=== PATIENT | male | born 2000 | race Caucasian/White ===

== ENCOUNTER 2020-05-03 20:55 | Emergency (ER) | payer BC ==
[~2020-05-03] VITALS: Ht 183 cm; Wt 74.8 kg
--- NOTE | 2020-05-03 21:19 | ED Abdominal Pain ---
General Stated Complaint: SORE THROAT/COUGH/HAS HAD BOTH COVID VACC Source of Information: Patient Exam Limitations: No Limitations History of Present Illness Date Seen by Provider: May 03, 2020 Time Seen by Provider: 21:01 Initial Comments This is a well appearing 19 yo male who presents to the ED with c/o sore throat and cough. States he has had both of his COVID vaccines. Reports cough is irritating and bothersome and wants to know if there is anything he can have to help with this. States he took Delsym, Ibuprofen, and Mucinex early this morning which did help his symptoms significantly. He has not taken anything since. Denies fever, chills, shortness of breath, nausea, vomiting, diarrhea, or abdominal pain. States he has slight chest discomfort from coughing so frequently. Allergies and Home Medications Allergies Coded Allergies: No Known Drug Allergies (Unverified , 05/03/20) Home Medications Albuterol Sulfate 1 Puff Puff, 2 PUFF INH Q4H PRN for WHEEZING 1 PUFF = 90 MCG Prescribed by: BECKY PSATOR on 05/03/202230 Benzonatate 100 Mg Capsule, 100 MG PO Q8H PRN for COUGH Prescribed by: BECKY PASTOR on 05/03/202230 Patient Home Medication List Home Medication List Reviewed: Yes Review of Systems Review of Systems Constitutional: no symptoms reported EENTM: See HPI; No Ear Pain; Nose Congestion, Throat Pain; No Throat Swelling Respiratory: Cough; Denies Shortness of Air, Denies Wheezing Cardiovascular: No Symptoms Reported Gastrointestinal: No Symptoms Reported Genitourinary: No Symptoms Reported Musculoskeletal: no symptoms reported Skin: no symptoms reported Psychiatric/Neurological: No Symptoms Reported Endocrine: No Symptoms Reported Hematologic/Lymphatic: No Symptoms Reported Physical Exam Vital Signs Vital Signs - First Documented 05/03/20 21:15 Temp 37.0 Pulse 81 Resp 18 B/P (MAP) 137/87 (104) Pulse Ox 100 O2 Delivery Room Air Capillary Refill : Height/Weight/BMI Height: '" Weight: lbs. oz. kg; BMI Method: General Appearance: WD/WN, no apparent distress HEENT: PERRL/EOMI, normal ENT inspection, pharynx normal Neck: non-tender, full range of motion, supple Respiratory: lungs clear, normal breath sounds, no respiratory distress; No accessory muscle use, No wheezing Cardiovascular: regular rate, rhythm, no murmur Gastrointestinal: normal bowel sounds, non tender, soft Extremities: normal range of motion, non-tender, normal inspection, normal capillary refill Neurologic/Psychiatric: no motor/sensory deficits, alert, normal mood/affect, oriented x 3 Skin: normal color, warm/dry; No rash Progress/Results/Core Measures Results/Orders Lab Results Laboratory Tests Test 05/03/20 21:19 Range/Units Group A Streptococcus Screen NEGATIVE NEGATIVE Micro Results Microbiology 05/03/20 Throat Culture - Preliminary, Resulted No Beta Strep isolated 05/03/20 Influenza Types A,B Antigen ([facility]) - Final, Complete My Orders Orders - BECKY PASTOR APRN Rapid Strep A Screen (05/03/20 21:01) Influenza A And B Antigens (05/03/20 21:01) Benzonatate Capsule (Tessalon Perles) (05/03/20 22:45) Vital Signs/I&O 05/03/20 05/03/20 21:15 22:35 Temp 37.0 37.0 Pulse 81 81 Resp 18 18 B/P (MAP) 137/87 (104) 137/87 (104) Pulse Ox 100 100 O2 Delivery Room Air Progress Progress Note : Progress Note Pt. examined and in no acute distress. Orders placed for Flu and Strep swab which were both neg. Given tessalon perle prior to discharge.Requested breathing tx. per his moms request prior to dc. Discussed that he had no wheezing, good breath sounds, and great SPO2. Additionally, he did not report any symptoms of shortness of air and I do not feel it is necessary for albuterol neb. Will give Rx for Albuterol inh. if he develops symptoms of SOA/wheezing. Reviewed discharge POC and he is agreeable with plan. Departure Impression Primary Impression: Acute viral laryngitis Disposition: HOME, SELF-CARE Condition: Stable Departure-Patient Inst. Decision time for Depature: 22:27 Referrals: NO,LOCAL PHYSICIAN (PCP/Family) Primary Care Physician Patient Instructions: Laryngitis (DC) Add. Discharge Instructions: Plan: 1. Discharge home. 2. Warm salt water gargles four times a day. 3. May continue Mucinex, Zyrtec, and cough syrup as needed. 4. Tylenol or Ibuprofen as needed for discomfort. See package details. 5. Use Tessalon perles as directed for cough. 6. Albuterol inhaler as needed for wheezing. 7. Return for any new or worsening symptoms. Scripts Albuterol Sulfate (VENTOLIN HFA) 1 Puff Puff 2 PUFF INH Q4H PRN for WHEEZING, #1 INHALER 0 Refills 1 PUFF = 90 MCG Prov: BECKY PASTOR PRESS DEPARTMENT MANAGER 05/03/20 Benzonatate (Tessalon Perle) 100 Mg Capsule 100 MG PO Q8H PRN for COUGH, #15 CAP 0 Refills Prov: BECKY PASTOR PRESS DEPARTMENT MANAGER 05/03/20 BECKY PASTOR PRESS DEPARTMENT MANAGER May 03, 2020 21:19
[2020-05-03] MEDS ORDERED: insulin (21:20)
[2020-05-03] MEDS ORDERED: RT-ALBUINH INH (22:31)
[2020-05-03] MEDS ORDERED: BENZ-13 PO (22:31)
[2020-05-03 22:35] VITALS: BP 137/87
[2020-05-03] MEDS ORDERED: BENZONATATE 100 MG (TESSALON) CAPSULE PO ONE (22:45)
== END 2020-05-03 22:35 | disposition home or self-care (01) ==
LOC: ER 20:59
DX: J04.0 Acute laryngitis (principal)
CPT/HCPCS: 87430; 87804